=== PATIENT | female | born 1985 | race Asian ===

== ENCOUNTER 2016-10-05 12:43 | Emergency (ER) | payer BC ==
--- NOTE | 2016-10-05 13:11 | RAD ---
INDICATION: Right small toe pain after injury TECHNIQUE: 3 views of the right small toe were obtained. FINDINGS: The visualized bones are normal alignment. Joint spaces appear maintained. No fracture is seen. IMPRESSION: NO EVIDENCE FOR FRACTURE. IF THE PATIENT'S SYMPTOMS PERSIST RECOMMEND FOLLOW-UP IMAGING.
--- NOTE | 2016-10-05 13:38 | UC ---
Lower Extremity/Ankle HPI - HPI Summary HPI Summary: YESTERDAY, HIT RIGHT FIFTH TOE ON GROCERY CART AT [facility]. SINCE INJURY HAS HAD CONTINUED PAIN AND SWELLING IN TOE. NO PAIN IN FOOT OR ANKLE; HOWEVER, PAIN IN TOE WITH WALKING. NO PREVIOUS INJURY. 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 Engineer Hx Last Menstrual Period: no periods Onset/Duration: Sudden Onset, Lasting Days, Still Present Severity Initially: Moderate Severity Currently: Moderate Aggravating Factor(s): Standing, Ambulation Alleviating Factor(s): Rest, Elevation, Ice Able to Bear Weight: Yes - WITH DISCOMFORT - Risk Factors Gout Risk Factors: Negative DVT Risk Factors: Negative Septic Arthritis Risk Factor: Negative - Allergies/Home Medications Allergies/Adverse Reactions: Allergies Allergy/AdvReac Type Severity Reaction Status Date / Time No Known Allergies Allergy Verified 10/05/16 12:44 Home Medications: Home Medications NK [No Home Medications Reported] 10/05/16 [History Confirmed 10/05/16] PMH/Surg Hx/FS Hx/Imm Hx Previously Healthy: Yes - Surgical History Surgical History: None - Family History Known Family History: Negative: Blood Disorder - Social History Occupation: Employed Full-time Lives: With Family Alcohol Use: None Substance Use Type: None Smoking Status (MU): Never Smoked Tobacco Review of Systems Constitutional: Negative Skin: Negative Eyes: Negative ENT: Negative Respiratory: Negative Cardiovascular: Negative Gastrointestinal: Negative Genitourinary: Negative Motor: Negative Neurovascular: Negative Musculoskeletal: Arthralgia, Myalgia Neurological: Negative Psychological: Negative All Other Systems Reviewed And Are Negative: Yes Physical Exam Triage Information Reviewed: Yes Appearance: Well-Appearing, Well-Nourished, Pain Distress - MILD Vital Signs: Initial Vital Signs Temp 99.0 F 10/05/16 12:45 Pulse 74 10/05/16 12:45 Resp 14 10/05/16 12:45 BP 111/59 10/05/16 12:45 Pulse Ox 100 10/05/16 12:45 Vital Signs Reviewed: Yes Eye Exam: Normal ENT Exam: Normal ENT: Positive: Hearing grossly normal Dental Exam: Normal Neck exam: Normal Respiratory Exam: Normal Respiratory: Positive: Chest non-tender, Lungs clear, Normal breath sounds, No respiratory distress, No accessory muscle use Cardiovascular Exam: Normal Cardiovascular: Positive: RRR, No Murmur, Pulses Normal, Brisk Capillary Refill Abdominal Exam: Normal Musculoskeletal: Positive: Strength Intact, ROM Intact, No Edema, Other: - NONTENDER RIGHT MIDFOOT. TENDERNESS ONLY TO RIGHT FIFTH PHALANGE Neurological Exam: Normal Psychological Exam: Normal Skin Exam: Normal Lower Extremity Course/Dx - Differential Dx/Diagnosis Differential Diagnosis/HQI/PQRI: Fracture (Closed), Sprain, Strain Provider Diagnoses: RIGHT FIFTH TOE SPRAIN AND CONTUSION Discharge - Discharge Plan Condition: Stable Disposition: HOME Patient Education Materials: Foot Contusion (ED), Foot Sprain (ED) Forms: *Work Release Referrals: [facility] [Outside] Lorenza Brock MD [Primary Care Provider] -
== END 2016-10-05 13:40 | disposition home or self-care (01) ==
LOC: UCEAST 12:43
DX: S93.524A Sprain of metatarsophalangeal joint of right lesser toe(s), initial encounter (principal); S90.121A Contusion of right lesser toe(s) without damage to nail, initial encounter; W22.8XXA Striking against or struck by other objects, initial encounter
CPT/HCPCS: 99203; G0463

== ENCOUNTER 2017-08-21 15:46 | Emergency (ER) | payer BC ==
[2017-08-21 16:01] VITALS: BP 105/67
--- NOTE | 2017-08-21 16:42 | ED ---
GI/ HPI - HPI Summary HPI Summary: 32-year-old female presents with constipation for the past 3 weeks. she's been having occasional diarrhea. She noticed about 2 weeks ago that she had a worm in her stool. She denies any recent travel in the last 30 days but before then she has been to many different countries. She denies any recent camping trip. She hasn't drunk any abnormal water. She denies any blood in her stool. She denies any nausea vomiting. She denies any previous belly surgeries. No abnormal vaginal discharge. no pain with urination. She denies any fevers. She has had abdominal pain like this before. She denies any family history of IBS. did not eat anything different. has not tried anything. is going to [place] in two days for 6 days. - History of Current Complaint Hx Last Menstrual Period: unknown Pain Intensity: 0 <Jocelyne Glez - Last Filed: 08/21/17 16:43> <Hang Lopez - Last Filed: 08/21/17 19:33> - History of Current Complaint Chief Complaint: UCGI Time Seen by Provider: 08/21/17 16:26 Stated Complaint: ABDOMINAL PAIN - Allergy/Home Medications Allergies/Adverse Reactions: Allergies Allergy/AdvReac Type Severity Reaction Status Date / Time No Known Allergies Allergy Verified 08/21/17 16:01 PMH/Surg Hx/FS Hx/Imm Hx Endocrine/Hematology History: Denies: Hx Diabetes, Hx Thyroid Disease Cardiovascular History: Denies: Hx Hypertension Respiratory History: Denies: Hx Asthma, Hx Chronic Obstructive Pulmonary Disease (COPD) GI History: Denies: Hx Ulcer Infectious Disease History: No Infectious Disease History: Denies: Hx Hepatitis, Hx Human Immunodeficiency Virus (HIV), Traveled Outside the [place] in Last 30 Days - Family History Known Family History: Negative: Blood Disorder - Social History Alcohol Use: None Substance Use Type: Reports: None Smoking Status (MU): Never Smoked Tobacco <Jocelyne Glez - Last Filed: 08/21/17 16:43> Review of Systems Negative: Fever Negative: Chest Pain Negative: Shortness Of Breath Positive: Abdominal Pain, Diarrhea, Other - constipation, worm in stool. Negative: Vomiting, Nausea All Other Systems Reviewed And Are Negative: Yes <Jocelyne Glez - Last Filed: 08/21/17 16:43> Physical Exam Triage Information Reviewed: Yes Vital Signs On Initial Exam: Initial Vitals Temp Pulse Resp BP Pulse Ox 98.8 F 70 16 105/67 97 08/21/17 15:56 08/21/17 15:56 08/21/17 15:56 08/21/17 15:56 08/21/17 15:56 Vital Signs Reviewed: Yes Appearance: Positive: Well-Appearing Skin: Positive: Warm, Dry Head/Face: Positive: Normal Head/Face Inspection Eyes: Positive: Normal, Conjunctiva Clear ENT: Positive: Pharynx normal Respiratory/Lung Sounds: Positive: Clear to Auscultation, Breath Sounds Present Cardiovascular: Positive: Normal, RRR Abdomen Description: Positive: Nontender, Soft Musculoskeletal: Positive: Normal Neurological: Positive: Normal Psychiatric: Positive: Normal <Jocelyne Glez - Last Filed: 08/21/17 16:43> Vital Signs On Initial Exam: Initial Vitals Temp Pulse Resp BP Pulse Ox 98.8 F 70 16 105/67 97 08/21/17 15:56 08/21/17 15:56 08/21/17 15:56 08/21/17 15:56 08/21/17 15:56 <Hang Lopez - Last Filed: 08/21/17 19:33> Diagnostics - Vital Signs Vital Signs Temp Pulse Resp BP Pulse Ox 08/21/17 15:56 98.8 F 70 16 105/67 97 <Jocelyne Glez - Last Filed: 08/21/17 16:43> - Vital Signs Vital Signs Temp Pulse Resp BP Pulse Ox 08/21/17 15:56 98.8 F 70 16 105/67 97 - Laboratory Lab Results: Lab Results 08/21/17 Range/Units 16:46 WBC 7.1 (3.5-10.8) 10^3/ul RBC 4.79 (4.00-5.40) 10^6/ul Hgb 13.0 (12.0-16.0) g/dl Hct 40 (35-47) % MCV 83 (80-97) fL MCH 27 (27-31) pg MCHC 33 (31-36) g/dl RDW 13 (10.5-15) % Plt Count 164 (150-450) 10^3/ul MPV 10.0 (7.4-10.4) um3 Neut % (Auto) 52.2 (38-83) % Lymph % (Auto) 37.8 (25-47) % [place] % (Auto) 6.7 (0-7) % Eos % (Auto) 2.8 (0-6) % Baso % (Auto) 0.5 (0-2) % Absolute Neuts (auto) 3.7 (1.5-7.7) 10^3/ul Absolute Lymphs (auto) 2.7 (1.0-4.8) 10^3/ul Absolute Monos (auto) 0.5 (0-0.8) 10^3/ul Absolute Eos (auto) 0.2 (0-0.6) 10^3/ul Absolute Basos (auto) 0 (0-0.2) 10^3/ul Absolute Nucleated RBC 0 10^3/ul Nucleated RBC % 0.1 Result Diagrams: 08/21/17 16:46 Lab Statement: Any lab studies that have been ordered have been reviewed, and results considered in the medical decision making process. <Hang Lopez - Last Filed: 08/21/17 19:33> GIGU Course/Dx - Course Course Of Treatment: 32-year-old female presents with constipation for the past 3 weeks. she's been having occasional diarrhea. She noticed about 2 weeks ago that she had a worm in her stool. She denies any recent travel in the last 30 days but before then she has been to many different countries. She denies any recent camping trip. She hasn't drunk any abnormal water. She denies any blood in her stool. She denies any nausea vomiting. She denies any previous belly surgeries. No abnormal vaginal discharge. no pain with urination. She denies any fevers. She has had abdominal pain like this before. She denies any family history of IBS. on exam abdomen soft nontender. 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 sent home with stool kit for O&P. told to increase fiber and potential add on metamucil. patient understand and agrees with plan. - Diagnoses Differential Diagnoses - Female: Constipation, Irritable Bowel Syndrome, Other - tapeworm <Jocelyne Glez - Last Filed: 08/21/17 16:43> <Hang Lopez - Last Filed: 08/21/17 19:33> - Diagnoses Provider Diagnoses: Constipation Discharge - Sign-Out/Discharge Documenting (check all that apply): Discharge/Admit/Transfer - Billing Disposition and Condition Condition: GOOD Disposition: Home <Rae Glezzabeth - Last Filed: 08/21/17 16:43> - Billing Disposition and Condition Condition: GOOD Disposition: Home <Hang Lopez - Last Filed: 08/21/17 19:33> - Discharge Plan Condition: Good Disposition: HOME Patient Education Materials: Constipation (ED) Referrals: [facility] [place] [facility] [Outside] Additional Instructions: Can try Metamucil OTC Try eating more fiber Return stool culture to lab Follow up with primary within 5 days Return to ED if develop any new or worsening symptoms Per institutional requirements, I have reviewed the chart, however, I was not consulted specifically or made aware of this patient by the above midlevel provider. I did not personally evaluate, interact with , or disposition this patient.
[2017-08-21 18:56] LABS: ABS Basophils 0 10^3/ul (0-0.2); ABS Eosinophils 0.2 10^3/ul (0-0.6); ABS Lymphocytes 2.7 10^3/ul (1.0-4.8); ABS Monocytes 0.5 10^3/ul (0-0.8); ABS Neutrophils 3.7 10^3/ul (1.5-7.7); ABS Nucleated RBC 0 10^3/ul; Eosinophil % 2.8 % (0-6); Hematocrit 40 % (35-47); Lymphocyte % 37.8 % (25-47); Mean Corpuscular HGB Conc 33 g/dl (31-36); Mean Corpuscular Hemoglobin 27 pg (27-31); Mean Corpuscular Volume 83 fL (80-97); Nucleated Red Blood Cells % 0.1; Platelet Count 164 10^3/ul (150-450); Red Blood Count 4.79 10^6/ul (4.00-5.40); Red Cell Distribution Width 13 % (10.5-15); White Blood Count 7.1 10^3/ul (3.5-10.8)
== END 2017-08-21 16:57 | disposition home or self-care (01) ==
LOC: UCEAST 15:46
DX: K59.00 Constipation, unspecified (principal); R10.9 Unspecified abdominal pain
CPT/HCPCS: 36415; 85025; 99211; G0463